=== PATIENT | female | born 1995 | race Caucasian/White ===

== ENCOUNTER 2019-07-02 12:33 | Emergency (ER) | payer SELFPAY ==
[~2019-07-02] VITALS: Ht 152.4 cm; Wt 77.0 kg
[2019-07-02 14:56] LABS: CLARITY URINE CLEAR (CLEAR); COLOR URINE YELLOW (YELLOW); KETONES URINE NEGATIVE (NEGATIVE); LEUKOCYTE ESTERASE URINE TRACE (NEGATIVE); NITRITE URINE NEGATIVE (NEGATIVE); OCCULT BLOOD URINE 3+ (NEGATIVE); PROTEIN URINE NEGATIVE (NEGATIVE); SPECIFIC GRAVITY URINE 1.017 (1.005-1.030); UROBILINOGEN URINE 0.2 E.U./dL (0.2-1.0)
[2019-07-02 14:57] LABS: BASOPHILS % 0.8 % (0.0-2.0); EOSINOPHILS % 1.2 % (0.0-5.0); HEMATOCRIT. 41.9 % (36.0-48.0); HEMOGLOBIN. 14.3 g/dL (12.0-16.0); LYMPHOCYTES % 28.8 % (20.0-50.0); MEAN CORPUSCULAR HEMOGLOBIN 30.8 pg (28.0-32.0); MEAN CORPUSCULAR VOLUME 90.1 fL (81.0-99.0); MEAN PLATELET VOLUME 8.5 fl (7.4-10.4); MONOCYTES % 6.5 % (2.0-8.0); NEUTROPHILS % 62.7 % (40.0-76.0); PLATELET 252 x1000/uL (130-400); RED BLOOD CELL COUNT 4.66 mill/uL (4.2-5.4); RED CELL DISTRIBUTION WIDTH 13.4 % (11.6-14.6)
[2019-07-02 15:03] LABS: CHLORIDE 109 mEq/L (98-107)
[2019-07-02 15:08] LABS: ETHANOL BLOOD < 10 mg/dL
[2019-07-02 15:13] LABS: *AMPHETAMINES SCREEN URINE NEGATIVE (NEGATIVE); *BARBITURATES SCREEN URINE NEGATIVE (NEGATIVE); *COCAINE SCREEN URINE NEGATIVE (NEGATIVE); HCG SCREEN NEGATIVE; METHADONE URINE SCREEN NEGATIVE (NEGATIVE)
[2019-07-02 15:14] LABS: OPIATES URINE SCREEN NEGATIVE (NEGATIVE); PHENCYCLIDINE URINE SCREEN NEGATIVE (NEGATIVE)
[2019-07-02 15:16] LABS: *BENZODIAZEPINES SCREEN URINE PRESUMTIVE POSITIVE (NEGATIVE); CANNABINOID URINE SCREEN PRESUMTIVE POSITIVE (NEGATIVE)
[2019-07-02] MEDS ORDERED: CEFTRIAXONE 1 G PREMIX 50 ML IV ONE (15:45)
[2019-07-03] MEDS ORDERED: ACETAMINOPHEN 325MG TABLET PO STA (13:31)
[2019-07-03] MEDS ORDERED: ONDANSETRON 4MG ODT PO STA (13:31)
[2019-07-05] MEDS ORDERED: CEPHALEXIN 250MG CAPSULE PO ONE ×2 (09:00→20:45)
[2019-07-05] MEDS ORDERED: ONDANSETRON 4MG ODT PO ONE (19:45)
[2019-07-05] MEDS: CEPHALEXIN 250MG CAPSULE PO SCH (21:00)
[2019-07-05] MEDS ORDERED: ONDANSETRON 4MG ODT PO NR (21:45)
[2019-07-06] MEDS ORDERED: ONDANSETRON 4MG ODT PO ONE (02:30)
[2019-07-06] MEDS: CEPHALEXIN 250MG CAPSULE PO SCH ×2 (09:00→17:00)
[2019-07-06] MEDS ORDERED: CEPHALEXIN 250MG CAPSULE PO ONE (09:00)
[2019-07-06 18:57] VITALS: BP 111/73
== END 2019-07-06 19:19 | disposition short-term general hospital (02) ==
LOC: ER 13:06
DX: R45.851 Suicidal ideations (principal); N30.00 Acute cystitis without hematuria; F32.9 Major depressive disorder, single episode, unspecified; F20.9 Schizophrenia, unspecified; I49.9 Cardiac arrhythmia, unspecified; Z88.2 Allergy status to sulfonamides
CPT/HCPCS: 36415; 80053; 80305; 80307; 80320; 80329; 81003; 84703; 85025; 93005; 96365; 99285; J0696; Q0162; G0480